=== PATIENT | male | born 1970 | race Caucasian/White ===

== ENCOUNTER 2022-06-21 10:21 | Day surgery (SDC) | payer BC ==
[2022-06-21] VITALS (7 sets, daily range): BP systolic 110–140; BP diastolic 68–94
[~2022-06-21] VITALS: Ht 157.5 cm; Wt 65.9 kg
[2022-06-21] MEDS ORDERED: fentaNYL/PF 50MCG/1 ML 2ML syringe ONE (10:39)
[2022-06-21] MEDS ORDERED: LIDOcaine Viscous 15ml cup ONE (10:40)
[2022-06-21] MEDS ORDERED: MIDAZolam 1 MG/ML 5ML VIAL ONE (10:40)
[2022-06-21] MEDS ORDERED: VITAMIN D PO (11:16)
[2022-06-21] MEDS ORDERED: CALCIUM PO (11:16)
[2022-06-21] MEDS ORDERED: naloxone 0.4 mg/ml inj ONE (12:36)
== END 2022-06-21 13:18 | disposition home or self-care (01) ==
LOC: GI LAB 10:21
PROVIDERS: ATTEND Internal Medicine Gastroenterology
DX: Z12.11 Encounter for screening for malignant neoplasm of colon (principal); R12 Heartburn; K57.30 Diverticulosis of large intestine without perforation or abscess without bleeding; K64.8 Other hemorrhoids; K64.0 First degree hemorrhoids; K21.00 Gastro-esophageal reflux disease with esophagitis, without bleeding; K31.7 Polyp of stomach and duodenum; K29.50 Unspecified chronic gastritis without bleeding; K22.70 Barrett's esophagus without dysplasia; Z72.89 Other problems related to lifestyle
CPT/HCPCS: 43239; 45378; 99152; 99153; J2250; J2310; J3010; J7030; Z7512; A4620